=== PATIENT | male | born 1965 | race Two or more races ===

== ENCOUNTER 2016-10-28 11:04 | Inpatient (IN) | payer OTHER ==
[2016-10-28] MEDS ORDERED: IV NS 0.9% 250 ML IV ONE (11:56)
[2016-10-28] MEDS ORDERED: IOHEXOL-300 100 ML VIAL IV ONE (11:56)
[2016-10-28] MEDS ORDERED: CT SWABBABLE VALVE TRANS SET 1 EA INFUS.SET MC ONE (11:56)
[2016-10-28] MEDS ORDERED: ONDANSETRON HCL/PF 4 MG/2 ML VIAL IVP ONE (12:30)
[2016-10-28] MEDS ORDERED: MORPHINE SULFATE INJ 2 MG/ML DISP.SYRIN IV ONE (12:30)
[2016-10-28] MEDS ORDERED: MORPHINE SULFATE INJ 4 MG/ML DISP.SYRIN ONE (12:32)
[2016-10-28] MEDS ORDERED: ONDANSETRON HCL/PF 4 MG/2 ML VIAL ONE (12:32)
[2016-10-28] MEDS ORDERED: ONDANSETRON HCL/PF 4 MG/2 ML VIAL IVP PRN (14:30)
[2016-10-28] MEDS ORDERED: hydrALAZINE HCL 10 MG TABLET PO PRN (14:30)
[2016-10-28] MEDS ORDERED: MAG HYDROX/AL HYDROX/SIMETH 30 ML UDC PO PRN (14:30)
[2016-10-28] MEDS ORDERED: MAGNESIUM HYDROXIDE 30 ML UDC PO PRN (14:30)
[2016-10-28] MEDS ORDERED: MORPHINE SULFATE INJ 2 MG/ML DISP.SYRIN IV PRN (14:30)
[2016-10-28] MEDS ORDERED: ACETAMINOPHEN 325 MG TABLET PO PRN (14:30)
[2016-10-28] MEDS ORDERED: Z GUARD REMEDY 2 OZ OINT TP PRN (14:30)
[2016-10-28] MEDS ORDERED: HYDROCODONE/APAP 5/325MG 1 EACH TABLET PO PRN (14:30)
[2016-10-28] MEDS ORDERED: ALLO100T PO (15:50)
[2016-10-28] MEDS ORDERED: AMLO5TAB2 PO (15:50)
[2016-10-28] MEDS ORDERED: GABA-534 PO ×3 (15:50→15:59)
[2016-10-28] MEDS ORDERED: LOSA100T15 PO (15:50)
[2016-10-28] MEDS ORDERED: ASPI-991 PO (15:50)
[2016-10-28] MEDS ORDERED: POTASSIUM CHLORIDE 20 MEQ TAB.PRT.SR PO ONE (19:30)
== END 2016-10-29 17:49 | disposition home or self-care (01) | DRG 552 ==
DX: S32.049A Unspecified fracture of fourth lumbar vertebra, initial encounter for closed fracture (principal); I10 Essential (primary) hypertension; M10.9 Gout, unspecified; S30.1XXA Contusion of abdominal wall, initial encounter; Y92.9 Unspecified place or not applicable; E66.9 Obesity, unspecified; W12.XXXA Fall on and from scaffolding, initial encounter; S50.311A Abrasion of right elbow, initial encounter; S60.511A Abrasion of right hand, initial encounter; S80.812A Abrasion, left lower leg, initial encounter; S80.811A Abrasion, right lower leg, initial encounter; Y99.0 Civilian activity done for income or pay